=== PATIENT | female | born 1935 | race Caucasian/White ===

== ENCOUNTER 2025-03-06 11:19 | Day surgery (SDC) | payer MEDICARE, OTHER, SELFPAY ==
[2025-03-06] VITALS (10 sets, daily range): BP systolic 85–110; BP diastolic 51–67; BMI 28.0
[2025-03-06] MEDS: LOW STRENGTH ASPIRIN 324 MG PO (11:55)
[2025-03-06] MEDS: NSS 211 ML IV (11:58)
--- NOTE | 2025-03-06 13:03 | ITS.CL.CATH ---
Supervisor Wire Rope Fabrication - Catheterization
Cardiac Catheterization
Procedure Report:
LEFT HEART CATHETERIZATION
Date of Procedure: March 06, 2025
Procedures performed:
1: Coronary angiography
2: Left ventricular hemodynamic assessment
Primary Care Physician: Dr. Precious Wayne
Primary Refinery Operator Visbreaking: Dr. Alex Solomon
INDICATION: The patient is an 89-year-old woman who is referred for cardiac catheterization in preparation for aortic valve intervention. Echocardiography performed on December 28 showed severe aortic stenosis with a functionally bicuspid valve.
Mean gradient was 51 with a aortic valve area by the continuity equation of 0.7 and a dimensionless index of 0.23. She has no clear symptoms but does report some 'low energy 'and her gradients have increased. Her daughters are concerned she may be
minimizing symptoms.
ACCESS: The patient was prepped and draped in usual sterile fashion. A 5 Thai sheath was placed in the right radial artery using the Seldinger over the wire technique.
HEMODYNAMIC FINDINGS (mmHg):
LV(s/d,EDP): 151/10, 14
Ao(s/d,m): 98/56, 73
Mean aortic valve gradient on catheter pullback: 46 mmHg
ANGIOGRAPHIC FINDINGS:
Single-plane Left Ventriculography in TERRAZAS Projection: Not done
Coronary Angiography:
Dominance: Right
Left Main: Normal
Left Anterior Descending: The left anterior descending artery has a somewhat peculiar anatomy giving rise to a very large first septal rn chemical dependency that then traverses intramyocardial under the LAD giving rise to 2 more large septal perforators. The
LAD itself gives rise to a high first diagonal branch which is a large-caliber vessel that has an ostial 70% stenosis involving the lesion in the LAD that is diffusely 40 to 50%. The LAD itself is smaller in caliber than the first diagonal branch
and has a smooth 40% long mid stenosis followed by a smooth long 70% mid to distal stenosis. There is normal distal flow in all vessels.
Left Circumflex: The left circumflex artery is a relatively large caliber vessel that gives rise to 1 major branching obtuse marginal branch. This vessel has mild diffuse luminal irregularities with no focal obstructive disease and normal distal
flow in all vessels.
Right Coronary: The right coronary artery is a huge dominant vessel that gives rise to a large caliber posterior left ventricular branch system with 2 major branches and a medium to large caliber posterior descending artery. The mid RCA has a
smooth 30% stenosis. The distal vessels appear angiographically normal with normal flow.
Fluoroscopy Time (min): 3.3
Radiation Dose (mGy): 221
DAP (Gy.cm2): 13
Closure device: None. A TR band was applied for hemostasis at the right wrist.
Complications: None.
ASSESSMENT:
1: Single-vessel LAD/diagonal coronary disease. Given the location and nature of the disease, I feel this should be treated medically in this 89-year-old without symptoms and normal LV systolic function.
2: Severe aortic valvular stenosis.
CONCLUSIONS and RECOMMENDATIONS:
1: Proceed with TAVR evaluation.
2: Initiate statin therapy with atorvastatin 10 mg daily with clinical follow-up with Dr. Solomon as scheduled.
Rand Esposito M.D.
Copy to: Dr. Precious Wayne
--- NOTE | 2025-03-06 14:27 | CONSULT.STRU ---
Consultation
-
Date/Time Consultation Requested: 03/06/2025
Date/Time Consultation Performed: 03/06/2025
Requesting Provider: Dr. Pedro Esposito
Performing Provider: JULIA Chaney
Reason for Consultation: Aortic stenosis/ TAVR evaluation
Patient History
Physicians
Family Physician: Precious Wayne
Outpatient Senior Backup Administrator: Alex Solomon
Primary Senior Backup Administrator: Alex Solomon
History of Present Illness
Mrs. Patel is a very pleasant and well appearing 89yo female. She has severe, borderline critical -Asymptomatic. This has progressed over last three years and is nearly critical. She remains very functional and minimally symptomatic. Her
daughter thinks she may be minimizing symptoms, patient essentially denies any symptoms other than fatigue. Her echocardiogram on 12/28/2024 shows AV PG/M.5/50.7, PENNY 0.74, AoV velocity of 4.46 m/s. She underwent cardiac cath today which
demonstrated Single-vessel LAD/diagonal coronary disease. Given the location and nature of the disease, Dr. Esposito felt this should be treated medically in this 89-year-old without symptoms and normal LV systolic function.
Reviewed the pathophysiology of aortic stenosis with the patient and her daughters. Explained the treatment options of SAVR and TAVR. Explained the TAVR evaluation process including follow up BMP, CT TAVR scan, CT surgery consult and Heart Team
discussion. Provided with script for BMP next week, script and appointment for CT TAVR, Consult appointment with Dr. Thompson and a copy of the TAVR education booklet with contact information. Allowed for and answered questions.
Past Medical History
Past Medical History: CAD, Hypothyroidism, Psychiatric (anxiety), Valvular Disease (Severe , trace AI, Trace MR) and Other (Irritable bowel syndrome, frequent UTIs (on low dose cefalexin daily), osteoarthritis of left knee, DJD)
Past Surgical History
Past Surgical History: Tonsilectomy and Other (hernia repair, hand surgery, nasal surgery, cataract surgery)
Dental History
[facility]. Regular dental care
Family History
Mother: at Age (98)
Father: at Age (77) and Cause of (cancer)
Social History
Alcohol: Occasional
Drug: None
Tobacco: Non-Smoker
Personal:
Living: Alone (in cottage at assisted living facility)
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
Allergies
Allergy/AdvReac Type Severity Reaction Status Date / Time
Penicillins Allergy Unknown Unknown Verified 03/06/25 11:55
Home Medications
�Medication �Instructions �Recorded �Confirmed �Type
ascorbic acid (vitamin C) 500 mg 500 mg PO DAILY 03/06/25 03/06/25 History
tablet (Vitamin C)
atorvastatin 10 mg tablet 10 mg PO QPM #1 tab 03/06/25 Rx
cephalexin 250 mg tablet 250 mg PO DAILY 03/06/25 03/06/25 History
citalopram 20 mg tablet 20 mg PO DAILY 03/06/25 03/06/25 History
levothyroxine 88 mcg tablet 88 mcg PO DAILY 03/06/25 03/06/25 History
red yeast rice 600 mg tablet 600 mg PO BID 03/06/25 03/06/25 History
STS%
STS %: 4.51%
Review of Systems
-
History Source: Patient and Family
General: Reports Fatigue (mild)
HEENT: Reports No Symptoms; Denies Visual Changes or Dysphagia
Respiratory: Reports No Symptoms; Denies SOB, DIXON, Cough, Asthma or PND
Cardiac: Reports No Symptoms; Denies Chest Pain or Edema
Abdomen/GI: Reports Other (IBS); Denies Reflux or Ulcers
: Reports Other (frequent UTI- chronically on cephalexin)
Musculoskeletal: Reports Joint Pain (left knee osteoarthritis)
Skin: Reports No Symptoms
Neurological: Reports No Symptoms; Denies CVA, TIA, Headaches, Syncope or Dizzy
Vascular: Reports No Symptoms
Physical Exam
Vital Signs
Temp 98.3 F 03/06/25 11:35
Temp route: Oral 03/06/25 11:35
Pulse 60 03/06/25 13:30
Resp Rate 16 03/06/25 13:30
Blood pressure 99/67 03/06/25 11:41
Blood pressure extremity used: Right upper arm 03/06/25 14:00
Position: Sitting 03/06/25 14:00
MAP (cuff-Polo Monitor) 75 03/06/25 11:41
SaO2 92 03/06/25 13:45
Oxygen Mode of Delivery Room air 03/06/25 14:00
Can the patient verbally communicate their pain? Yes 03/06/25 14:00
Actual Weight 70.4 kg 03/06/25 11:35
Body Mass Index (BMI) 28.0 03/06/25 11:35
Labs
02/28/2025:
H/H: 16.1/50.0
WBC: 10.2
Platelets: [id number]
BUN/Creat: 22/0.72
GFR: 81
Diagnostic Studies
Cardiac Catheterization 03/06/2025:
HEMODYNAMIC FINDINGS (mmHg):
LV(s/d,EDP): 151/10, 14
Ao(s/d,m): 98/56, 73
Mean aortic valve gradient on catheter pullback: 46 mmHg
ANGIOGRAPHIC FINDINGS:
Single-plane Left Ventriculography in TERRAZAS Projection: Not done
Coronary Angiography:
Dominance: Right
Left Main: Normal
Left Anterior Descending: The left anterior descending artery has a somewhat peculiar anatomy giving rise to a very large first septal auto service instructor that then traverses intramyocardial under the LAD giving rise to 2 more large septal perforators. The
LAD itself gives rise to a high first diagonal branch which is a large-caliber vessel that has an ostial 70% stenosis involving the lesion in the LAD that is diffusely 40 to 50%. The LAD itself is smaller in caliber than the first diagonal branch
and has a smooth 40% long mid stenosis followed by a smooth long 70% mid to distal stenosis. There is normal distal flow in all vessels.
Left Circumflex: The left circumflex artery is a relatively large caliber vessel that gives rise to 1 major branching obtuse marginal branch. This vessel has mild diffuse luminal irregularities with no focal obstructive disease and normal distal
flow in all vessels.
Right Coronary: The right coronary artery is a huge dominant vessel that gives rise to a large caliber posterior left ventricular branch system with 2 major branches and a medium to large caliber posterior descending artery. The mid RCA has a
smooth 30% stenosis. The distal vessels appear angiographically normal with normal flow.
Fluoroscopy Time (min): 3.3
Radiation Dose (mGy): 221
DAP (Gy.cm2): 13
Closure device: None. A TR band was applied for hemostasis at the right wrist.
Complications: None.
ASSESSMENT:
1: Single-vessel LAD/diagonal coronary disease. Given the location and nature of the disease, I feel this should be treated medically in this 89-year-old without symptoms and normal LV systolic function.
2: Severe aortic valvular stenosis.
CONCLUSIONS and RECOMMENDATIONS:
1: Proceed with TAVR evaluation.
2: Initiate statin therapy with atorvastatin 10 mg daily with clinical follow-up with Dr. Solomon as scheduled.
Echocardiogram 12/28/2024:
SUMMARY
1. Left ventricular ejection fraction, by visual estimation, is 55 to 60%.
2. Severe concentric left ventricular hypertrophy.
3. Normal LV diastolic function.
4. The left atrium is normal in by volume index 22.5 mL/m2.
5. Normal right ventricular size and systolic function.
6. Normal right atrium by area 12.9 cm2.
7. Aortic valve is functionally bicuspid. Severe aortic valve stenosis. Trace aortic regurgitation.
8. AoV velocity of 4.46 m/s; Peak aortic valve gradient = 79.5 mmHg; Mean gradient = 50.7 mmHg; AoV Area by continuity equation = 0.74 cm2; AoV Dimensionless Index = 0.23.
9. Mild mitral annular calcification.
10. Right atrial pressure of (3 mmHg), the estimated right ventricular systolic pressure is normal at (20.0 mmHg).
11. Aortic root and ascending aorta appear normal, with no evidence of dilatation or obstruction.
12. Compared to prior study 07/2024, findings are similar.
13. Study done in Normal sinus rhythm.
14. Basal inferior segment is abnormal.

PHYSICIAN INTERPRETATION
Left Ventricle:
The left ventricular internal cavity size was normal. There is severe concentric left ventricular hypertrophy. Normal LV diastolic function was demonstrated. Left ventricular ejection fraction, by visual estimation, is 55 to 60%.
LV Wall Scoring:
The basal inferior segment is hypokinetic. All remaining scored segments are
normal.
Right Ventricle:
Normal right ventricular size, wall thickness, and systolic function. The tricuspid regurgitant velocity predicts an estimated right ventricular systolic pressure of 20.0 mmHg.
Left Atrium:
The left atrium is normal by volume index 22.5 mL/m2.
Right Atrium:
Right atrium is normal by area 12.9 cm2.
Inferior vena cava normal in size (<2.1 cm) + greater than 50% variably consistent with normal right atrial pressures (3 mmHg).
Interatrial Septum:
Interatrial and interventricular septa appear intact, with no obvious evidence of intracardiac shunting by spectral or color Doppler.
Aortic Valve:
The aortic valve is functionallly bicuspid. Doppler findings and restricted movement of the aortic valve cusps are consistent with severe aortic stenosis. The peak aortic valve gradient is 79.5 mmHg. The mean aortic valve gradient is 50.7 mmHg.
There is trace aortic regurgitation seen.
Mitral Valve:
There is mild mitral annular calcification. The calculated mitral valve area is 2.58 cm�, using a pressure half-time of 85 msec. Trace mitral valve regurgitation is seen.
Tricuspid Valve:
There is trace tricuspid valve regurgitation. The tricuspid regurgitant velocity is (2.06 m/s), and with an assumed right atrial pressure of (3 mmHg), the right ventricular systolic pressure is normal (20.0 mmHg).
Pulmonary Valve:
The pulmonary valve is normal in structure and function, with good leaflet excursion, and without any evidence of pulmonary stenosis or significant regurgitation.
Aorta:
The aortic root and ascending aorta appear normal in dimensions, with no evidence of dilatation or obstruction.
Pericardium:
There is no evidence of pericardial effusion.
Sinus Rhythm: Normal sinus rhythm.
Comparison To Previous Study:
Compared to prior study 07/2024, findings are similar.
Exam
General: Well Developed, Well Nourished, No Apparent Distress and Comfortable
HEENT: Normocephalic, Moist Mucous Membranes and PERRLA
Neck: Trachea Midline
Respiratory: Clear; Negative Wheezes, Crackles or Rhonchi
Cardiac: S1/S2, Regular Rhythm and Murmur (Grade III/ GHULAM)
GI: Soft, Non Tender and Normal Bowel Sounds
Rectal: Deferred by Provider
Skin: Warm and Dry
Neuro: AO x 3
Extremities: Pulses (normal); Negative Lower Level Edema
Psych: Calm
Assessment / Plan
-
Severe Aortic stenosis:
����������� Continue evaluation for aortic stenosis as outpatient
����������� BMP at [facility] [address] on 03/12
����������� CT TAVR scan 03/15/2025 at
����������� CT surgery consult with Dr. Thompson 03/26/2025
����������� Dental Clearance ([facility])
����������� Heart team discussion at [facility]
Procedure Type:�Isolated AVR
Perioperative Outcome Estimate %
Operative Mortality 4.51%
Morbidity & Mortality 9.45%
Stroke 1.67%
Renal Failure 0.917%
Reoperation 2.96%
Prolonged Ventilation 5.59%
Deep Sternal Wound Infection 0.048%
Long Hospital Stay (>14 days) 5.05%
Short Hospital Stay (<6 days)* 32.5%
Data Reviewed
-
EKG: Report Reviewed by me
Junior Sales Assistant: Discussed with Physician, Discussed with Patient and Discussed with Family
Echo: Report Reviewed by me, Discussed with Physician, Discussed with Patient and Discussed with Family
Labs: Labs Reviewed by me
Old Records: Reviewed (cardiology consult note)
Total Time Spent with Patient (in minutes): 30
== END 2025-03-06 16:25 | disposition home or self-care (01) ==
LOC: CATH 11:19
PROVIDERS: ATTENDING PHYSICIAN Internal Medicine Interventional Cardiology; FAMILY PHYSICIAN Family Medicine; OTHER PHYSICIAN Internal Medicine Cardiovascular Disease
DX: I25.10 Atherosclerotic heart disease of native coronary artery without angina pectoris (principal); I08.0 Rheumatic disorders of both mitral and aortic valves; E03.9 Hypothyroidism, unspecified; Z87.19 Personal history of other diseases of the digestive system
CPT/HCPCS: 93458; C1769; C1894; Q9967

== ENCOUNTER → 2025-03-15 08:43 | Outpatient (REF) | payer MEDICARE, OTHER, SELFPAY | LOC: RAD 08:43 | PROVIDERS: ATTENDING PHYSICIAN Nurse Practitioner Adult Health; FAMILY PHYSICIAN Family Medicine | DX: I35.0 Nonrheumatic aortic (valve) stenosis (principal) | CPT/HCPCS: 74174; 75572; Q9967 ==

== ENCOUNTER 2025-04-25 07:24 | Inpatient (IN) | payer MEDICARE, OTHER, SELFPAY ==
[2025-04-15 12:43] VITALS: BMI 28.7
[2025-04-15 13:18] LABS: % Basophils 0.3 % (0-2); % Eosinophils 1.5 % (0-6); % Immature Granulocytes 0.3 % (0-0.5); % Lymphocytes 12.7 % (20.5-51.1); % Monocytes 6.6 % (1.7-9.3); % Neutrophils 78.6 % (42.2-75.2); Absolute Eosinophils 0.1 10^3/uL (0-0.7); Absolute Monocytes 0.5 10^3/uL (0.1-0.6); Absolute Neutrophils 5.9 10^3/uL (1.4-6.5); Hematocrit 43.2 % (37.0-47.0); Hemoglobin 14.2 g/dL (12.0-16.0); Mean Corp Hgb Conc. 32.9 g/dL (33.0-37.0); Mean Corpuscular Hgb 29.5 pg (27.0-31.0); Mean Corpuscular Volume 89.8 fL (81.0-99.0); Nucleated Red Blood Cells % 0 %; Platelet Count 247 10^3/uL (130-400); Red Blood Cell Count 4.81 10^6/uL (4.20-5.40); Red Cell Dist. Width 13.8 % (11.5-14.5); White Blood Cell Count 7.5 10^3/uL (4.8-10.8)
[2025-04-15 14:02] LABS: Glycohemoglobin (HgbA1c) 5.6 % (4.0-5.6)
[2025-04-15 14:19] LABS: INR 1.08; PT 14.3 Sec (11.4-14.6)
[2025-04-15 14:20] LABS: APTT 43.4 Sec (23.4-35.0)
[2025-04-15 14:39] LABS: Urine Albumin Negative (Neg - Trace); Urine Bilirubin Negative (Negative); Urine Character Clear (Clear); Urine Color Yellow; Urine Glucose Negative (Negative); Urine Ketone Negative (Negative); Urine Leukocyte Negative (Negative); Urine Nitrite Negative (Negative); Urine Occult Blood Negative (Negative); Urine Specific Gravity 1.015 (<1.030); Urine Urobilinogen Negative (Neg - 1+); Urine pH 6.5 (5.0-9.0)
[2025-04-15 15:17] LABS: NT-proBNP 789 pg/ml
[2025-04-15 15:21] LABS: ALT (SGPT) 16 U/L (0-35); AST (SGOT) 21 U/L (14-36); Alkaline Phosphatase 77 U/L (38-126); Blood Urea Nitrogen 17 mg/dl (7-17); Calcium 9.7 mg/dl (8.4-10.2); Carbon Dioxide 27 mmol/L (22-30); Chloride 108 mmol/L (98-107); Direct Bilirubin 0.3 mg/dl (0.0-0.4); Estimated Creatinine Clearance 54 ml/min; Glucose 79 mg/dl (70-99); Potassium 4.4 mmol/L (3.5-5.1); Sodium 142 mmol/L (135-145); Total Bilirubin 0.6 mg/dl (0.2-1.3); Total Protein 6.5 g/dl (6.3-8.2); eGFR > 60.00
--- NOTE | 2025-04-15 16:22 | CM ---
spoke to pt and daughter, bassam, in PAT's. we discussed preop TAVR teaching including driving and lifting restrictions, she is prev indep, lives alone in a 1 story home with no steps to enter. she has the TAVR educ book, soap and instructions, cm
role explained and all questions answered. she is agreeable to a f/u visist from the ct transitional care nurse after dc
[2025-04-25] VITALS (26 sets, daily range): BP systolic 71–153; BP diastolic 52–92; BMI 28.3
[2025-04-25] MEDS: BACTROBAN NASAL 1 GRAM NASAL (08:21)
--- NOTE | 2025-04-25 09:11 | W.CVOR.SURPR ---
CVOR Surgeon Immed Pre Op
-
I have examined this patient prior to performance of the scheduled procedure.
The patient's condition is unchanged from the time of the dictated/written History and
Physical and the patient is able to undergo the scheduled procedure.
[2025-04-25 10:55] LABS: ACT-LR - POC 390 Seconds (116-155)
--- NOTE | 2025-04-25 11:24 | W.IMMPOSTOP ---
Addendum entered and electronically signed by Nitish Thompson MD 04/25/25 11:58:
[id number]
Original Note:
Surgical Immed Post Op Note
-
STRUCTURAL HEART PROCEDURE NOTE: TAVR
Preoperative Dx:
Severe aortic stenosis (P/M: 79.5/50.7), PENNY 0.74, Dipping Machine Operator 4.46)
Single vessel CAD (LAD/D)
Trace AI, trace MR
OA of L knee
DDD
Hypothyroidism
DDD
Frequent UTIs
Postoperative Dx:
Same
Procedures:
1) R CFV access w/ U/S and fluoroscopic guidance, micropuncture technique, long 6Fr sheath placement
2) R CAMP BOSS access w/ tactile, U/S, and fluoroscopic guidance, micropuncture technique, limited angiography, long 6Fr sheath placement
3) L CAMP BOSS access w/ tactile, U/S, and fluoroscopic guidance, micropuncture technique, limited angiography, 8Fr dilator placement
4) Perclose placement x 2 into L CAMP BOSS, 8Fr sheath placement
5) Placement of temporary RV pacing wire w/ threshold testing
6) Placement of pigtail catheter in RCC w/ limited aortography & confirmation of co-planar valve deployment angles
7) Placement of Briones E-sheath via L CAMP BOSS access
8) Wire purchase across stenotic AV; withdrawal and repeat wire purchase across stenotic AV (AL-1, soft-tip straight, table-J, AL-1, soft-tip straight, LVEDP assessment (19mmHg), extra-stiff)
9) L TF TAVR w/ placement of 26mm YUE 3 valve
10) Completion aortography
11) Completion TTE (mean gradient 4mmHg, no AI/PVL)
12) Removal of valve delivery system/Briones E-sheath w/ L CAMP BOSS mgmt w/ perclose sutures x 2; manual pressure
13) Completion L ileofemoral angiography x 2
14) Removal of temporary pacing wire
15) Removal of R CAMP BOSS 6Fr sheath w/ mgmt w/ 6Fr angioseal; manual pressure (protamine)
16) Removal of R CFV 6Fr sheath w/ mgmt w/ manual pressure
Canteen Manager:
Dr. Soraya Burrell
Cardiac Surgeon:
Dr. Nitish Thompson
Anesthesia:
MAC & local to B/L groins
Complications:
None
Cath Data:
Start: 1021hrs, Deploy: 1101hrs, End: 1122hrs
FT: 13.2min, mGy: 321.77, DAP: 36.2508, Contrast: 110
Post-TTE: mean gradient 4mmHg, no AI/PVL
Implants:
Briones Lifescience, YUE 3, 26mm, SN [id number]
Perclose x 2 to L CAMP BOSS
6Fr angioseal x 1 to R CAMP BOSS
Condition:
Stable/guarded to recovery
--- NOTE | 2025-04-25 11:29 | ITS.CL.TAVR ---
Industrial Sweeper Cleaner - TAVR Report
TAVR PRocedure
Procedure Report:
TRANSCATHETER AORTIC VALVE REPLACEMENT
Date of Procedure: April 25, 2025
Referring: Alex Solomon and Rand Esposito
Operators: Drs. Soraya Burrell and Nitihs Thompson
PROCEDURE PERFORMED:
1. Successful placement of 26 mm Briones Juma S3 aortic valve via left common femoral approach.
ACCESS:
1. Right common femoral artery, 6 Congolese sheath, under ultrasound guidance using a micropuncture kit.
2. Right common femoral vein, 6 Congolese sheath, under ultrasound guidance using a micropuncture kit.
3. Left common femoral artery, 8 Congolese sheath, under ultrasound guidance using a micropuncture kit.
Ultrasound was utilized for vascular access. The right and left femoral artery and vein were visualized under ultrasound, and the vessels was patent and arteries were pulsatile. An image was stored permanently in the patient's medical record.
Under direct ultrasound guidance, a 6 Congolese sheaths was inserted into the right common femoral artery and vein, and an 8 Congolese sheath in the left common femoral artery, respectively, using a micropuncture kit through a modified Seldinger technique.
PREPROCEDURE NYHA CLASS: II
DESCRIPTION OF PROCEDURE: The patient was referred for assessment of severe symptomatic aortic stenosis and following a comprehensive evaluation it was felt that transcatheter aortic valve replacement (TAVR) would be the most appropriate treatment.
Informed consent was obtained prior to the procedure. A 'time-out' was called and the procedural plan was verbally confirmed by anesthesia, surgery, perfusion, and mechanical shop laborer staff.
Arterial and venous access site were obtained in the right common femoral artery and vein using ultrasound guidance and micropuncture technique. 6 Fr. sheaths were inserted.
A 5 Fr. transvenous pacing wire was advanced to the right ventricle where excellent pacing thresholds were obtained.
A 5 Fr. pigtail catheter was then advanced to the proximal ascending aorta / right aortic cusp where angiography was performed in multiple angles to define the co-planar angle that was most appropriate valve deployment (LUXEMBOURGER 7/ CAU 12).
Ultrasound guidance was then used to obtain arterial access in the left common femoral artery and a 4 Fr. micropuncture sheath was inserted. Angiography was performed and the arteriotomy site appeared appropriate for preclosure with two Perclose
devices. An 8 Fr sheath was then inserted back into the common femoral artery over a J-tipped guidewire. An AL1 catheter was positioned in the proximal descending aorta. An Extra Stiff 0.035' J-tip wire was inserted to provide extra-support to
facilitate the Briones eSheath delivery. The 16 Fr. Briones eSheath was successfully advanced in the descending thoracic aorta.
An AL1 catheter was advanced through the Briones eSheath over a 0.035' J-tip guide wire. The AL1 catheter was positioned just above the aortic valve. A 0.035' Straight tip wire probed the aortic valve and crossed the stenotic leaflets. The AL1
was then advanced to the mid left ventricle. Estimated LV end-diastolic pressure invasively was 16. An Amplatz Extra-stiff wire with a generous curved tip was then positioned in the left ventricular apex. A 26 mm Briones Juma S3 valve was brought
to the table and the orientation of the valve on the balloon delivery system was confirmed by all operators. The Juma S3 valve was advanced through the eSheath and into the proximal descending thoracic aorta. The Juma S3 valve was centered on
the delivery balloon and the entire system was retroflexed as it crossed the aortic arch. The Juma S3 delivery system was then advanced across the stenotic valve and the 26 mm Juma S3 valve was deployed during rapid pacing. The valve
deployment was uneventful. Transthoracic echocardiographic images post valve deployment revealed minimal aortic insufficiency with excellent position of the aortic prosthesis. Transaortic mean gradient by echocardiogram post TAVR was 4 mmHg. No
aortic regurgitation.
The Briones balloon and delivery system were then removed. The Briones sheath was removed and the Perclose knots were advanced to the arteriotomy site resulting in excellent hemostasis.
Fluoro Time: 8.8 min, Dose: 720.7 mGy, DAP : 50.6 Gy.cm2
CONCLUSIONS:
1. Severe symptomatic aortic stenosis. Successful deployment of a 26 mm Juma S3 valve with minimal aortic insufficiency post procedure
2. Successful arteriotomy closure with 2 Perclose devices.
Soraya Burrell MD, FACC, [facility]
Copy to: Alex Solomon and Rand Esposito
[2025-04-25] MEDS: LEVOPHED 250 IV (12:15)
[2025-04-25] MEDS: ANCEF IV (14:20)
[2025-04-25] MEDS: ANCEF 10 IV (14:20)
--- NOTE | 2025-04-25 14:29 | CM ---
CM following for DC planning needs.
Patient in OR today for planned TAVR.
I have reviewed initial assessment. Patient resides in a private, 1 story home alone. She is functionally independent with ADLs, mobilities without the use of any assisted device.
Anticipated DC plan is for home w/ CT Transitional Care RN.
CM to follow.
[2025-04-25 14:34] LABS: ACT-LR - POC > 397 Seconds (116-155)
[2025-04-25] MEDS: ANCEF 5 IV (17:27)
[2025-04-25] MEDS: LIPITOR 10 MG PO (17:27)
--- NOTE | 2025-04-25 18:45 | PTCARENOTE ---
Pt received post TAVR, drowsy but oriented X 3. Neuro assessment unremarkable. Bilateral femoral sites with dry and intact dressings, no sign of bleeding or hematoma, doppler pedal pulses. Pt with levo infusion at 2mcgs, turned off by 17:00. When pt
was sat up in bed she reported 'a strange feeling in her chest, nothing she had ever had before'. She denied any pain, tightness, burning, discomfort but just stated it was 'odd'. She reported that it went away slowly by the time she ate. Esther
Juan and Eva Roberson, investment banker notified, will notify them if it returns. Telemetry shows sinus rhythm with first degree AV block, SBP's 120-130. Pt OOB to bathroom, voiding without difficulty.
--- NOTE | 2025-04-26 00:05 | PTCARENOTE ---
Rec'd pt. at change of shift sitting OOB in chair, complaining that she felt 'funny in her chest' best described as unable to take a deep breath. Denied any chest pain, just a sensation she had difficulty describing. Pulse ox on RA 91-95%, some
crackles present right lung base. Pt. assisted back to bed and placed on 2L NC with pulse ox increasing to 97-98% & EKG completed. CARL-APOLINAR Esquivel aware and came to bedside to assess, advised to keep O2 on overnight with continuous pulse ox. Pt.
currently states she feels much better with O2 on, pulse ox 95%. NSR with first degree AVB on the monitor, other vitals stable. Bilateral groin site dressings CDI with no bleeding or hematoma assessed, Doppler pedal pulses present. Pt. resting
quietly in bed.
--- NOTE | 2025-04-26 02:02 | W.PN.CT ---
Today's Communication / Plan
-
-pod #1
-c/o intermittent episodes of mild SOB since TAVR, denied DIXON with walking to the bathroom, no distress- pOx was 95% on RA, felt better on 2L O2 with pOx 97%. No CP, ECG was stable, no change. Vitals and groins were stable.
-nsr 70s overnight. No parker or pauses
-has known 1st degree AVB- appears worse (MA interval >300 ms)
-long Qt
-K 5.4 this am - will recheck
-follow CXR
-Echo today
-current meds (ASA, Lipitor, Keflex, Celexa, Synthroid).
-will need heart monitor
-encourage IS, ambulate
Assessment / Plan
-
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
- Post-TTE: mean gradient 4mmHg, no AI/PVL
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
- Single vessel CAD (LAD/D)
- Trace AI, trace MR
- OA of L knee
- DDD
- Hypothyroidism
- DDD
- Frequent UTIs
Discussed patient care with: Nursing and Care Team
Subjective
-
Date of Service: April 26, 2025
Objective Data
-
PT 14.3 Sec (11.4-14.6) 04/15/25 12:36
INR 1.08 04/15/25 12:36
APTT 43.4 Sec (23.4-35.0) H 04/15/25 12:36
Vital Signs
Vital Signs
Temp Pulse Resp BP Pulse Ox
98.2 F 66 16 132/75 96
04/25/25 22:33 04/25/25 23:00 04/25/25 22:33 04/25/25 22:33 04/25/25 23:00
CT Intake/Output/Weight
04/25/25 04/25/25 04/26/25
06:59 18:59 06:59
Intake Total 1110 / 1110
Balance 1110 / 1110
SaO2: 96
[2025-04-26 03:41] VITALS: BP 136/84
[2025-04-26 04:14] LABS: Hemoglobin 14.1 g/dL (12.0-16.0); Mean Corpuscular Volume 90.5 fL (81.0-99.0); Mean Platelet Volume 10.7 fL (7.4-10.4); Platelet Count 174 10^3/uL (130-400); Red Blood Cell Count 4.86 10^6/uL (4.20-5.40); Red Cell Dist. Width 14.3 % (11.5-14.5); White Blood Cell Count 12.8 10^3/uL (4.8-10.8)
[2025-04-26 04:23] VITALS: BMI 28.4
[2025-04-26 04:48] LABS: Blood Urea Nitrogen 16 mg/dl (7-17); Calcium 9.5 mg/dl (8.4-10.2); Carbon Dioxide 25 mmol/L (22-30); Chloride 110 mmol/L (98-107); Estimated Creatinine Clearance 54 ml/min; Glucose 118 mg/dl (70-99); Potassium 5.4 mmol/L (3.5-5.1); Sodium 140 mmol/L (135-145); eGFR > 60.00
[2025-04-26] MEDS: SYNTHROID 88 MCG PO (05:53)
[2025-04-26 08:17] VITALS: BP 135/70
[2025-04-26] MEDS: ASPIR LOW (ENTERIC COATED) 81 MG PO (08:54)
[2025-04-26] MEDS: CELEXA 20 MG PO (08:55)
[2025-04-26] MEDS: VITAMIN C 500 MG PO (08:55)
[2025-04-26] MEDS: KEFLEX 250 MG PO (08:55)
--- NOTE | 2025-04-26 08:59 | W.PN.CARDCBS ---
Today's Communication / Plan
-
follow on tele
echo pending
repeat K
hold citalopram for 2 weeks
ambulate
OP cardiac follow up arranged
Impression / Plan
-
Primary Security Monitor: Dr. Solomon of [facility]
Assessment:
- Severe symptomatic s/p L TF TAVR 26mm YUE 3 valve 04/25/25
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
- Single vessel CAD of LAD/diagonal by cath 03/06/25, treated medically
- OA of L knee
- DDD
- Hypothyroidism
- Frequent UTIs
ECHO 12/28/24: EF 55-60%, severe cLVH, functionally bicuspid , trace AR, peak/mean gradients 79.5/50.7mmHg, PENNY 0.74cm2, mild MAC
ECHO 04/26/25: pending
Plan:
-Patient status post left transfemoral TAVR 04/25/2025
-Feeling well
-B/L groin sites stable
-noted to have low grade temp and white count of 12.8, follow, may be reactive post procedure
-Weaning oxygen
-Hemoglobin stable at 14.1. Continue aspirin
-Echo pending
-repeat K as was 5.4 by blood work this morning
-Was noted to to have brief episode of tachycardia this AM on tele, appears to be sinus rhythm with long 1st degree (P buried in T)
-QTc was noted to be prolonged by 3AM EKG, improved by repeat, suspect was inaccurate related to known long 1st degree av block but does remain somewhat prolonged. reviewed prior EKGs. will hold citalopram for 2 weeks then resume
-will discuss need for monitor upon DC
-ambulate/OOB
-OP cardiac follow up arranged
-for possible DC to home later today
-d/w nursing
Progress Note - Security Monitor
Subjective
Date of Service: April 26, 2025
feeling well. no complaints
Objective
Labs:
04/26/25 04:04
Labs
Hgb 14.1 g/dL (12.0-16.0) 04/26/25 04:04
Hct 44.0 % (37.0-47.0) 04/26/25 04:04
Plt Count 174 10^3/uL (130-400) 04/26/25 04:04
PT 14.3 Sec (11.4-14.6) 04/15/25 12:36
INR 1.08 04/15/25 12:36
APTT 43.4 Sec (23.4-35.0) H 04/15/25 12:36
Sodium 140 mmol/L (135-145) 04/26/25 04:04
Potassium 5.4 mmol/L (3.5-5.1) H 04/26/25 04:04
BUN 16 mg/dl (7-17) 04/26/25 04:04
Creatinine 0.7 mg/dL (0.6-1.0) 04/26/25 04:04
Glucose 118 mg/dl (70-99) H 04/26/25 04:04
Vital Signs and I&O:
Vital Signs
Temp Pulse Resp BP Pulse Ox
99.4 F 95 18 136/84 94
04/26/25 08:17 04/26/25 08:17 04/26/25 08:17 04/26/25 03:41 04/26/25 08:17
Vital Signs
Temp Pulse Resp BP Pulse Ox
99.4 F 95 18 136/84 94
04/26/25 08:17 04/26/25 08:17 04/26/25 08:17 04/26/25 03:41 04/26/25 08:17
Intake & Output
04/24/25 04/25/25 04/26/25 04/27/25
07:59 07:59 07:59 07:59
Intake Total 1590 / 1590
Balance 1589
Physical Exam
Physical Exam
GEN: No distress, awake, alert, oriented x3
HEENT: supple, anicteric, mmm, eomi
LUNGS: CTA B/L, no wheezes/rales
CV: Reg, S1/S2, 1/6 syst LSB
ABD: soft, BS+, NT/ND
EXT: No cyanosis, clubbing, edema
NEURO: Gross non-focal
SKIN: Warm, pink, dry. No rash. B/L groin sites soft, c/d/i
[2025-04-26 10:36] LABS: Potassium 4.1 mmol/L (3.5-5.1)
--- NOTE | 2025-04-26 11:46 | CM ---
CM following for DC planning needs.
Met w/ patient and dtr. at bedside. Pt. reports that she is feeling well. DC plan reviewed and plan is for home w/ [facility] RN.
Reviewed post op restrictions, follow up appointment and Cardiac Rehab.
Plan-home w/ CT RN
[2025-04-26 11:49] VITALS: BP 131/59
[2025-04-26 12:06] VITALS: BP 118/74
[2025-04-26 12:16] VITALS: BP 137/66
[2025-04-26 12:27] VITALS: BP 118/66; BP 137/60; PULSE 94; O2SAT 98; O2SAT 99
--- NOTE | 2025-04-26 14:05 | PTCARENOTE ---
d/c instructions read to pt and pt verbalized understanding. daughter at bedside listening also. iv and tele removed. starlink applied. pt left w/ belongings from room.
== END 2025-04-26 14:19 | disposition home or self-care (01) | DRG 267 ==
LOC: IVU 07:24
PROVIDERS: Nurse Practitioner; ADMITTING PHYSICIAN Thoracic Surgery (Cardiothoracic Vascular Surgery); CONSULT PHYSICIAN Internal Medicine Interventional Cardiology; FAMILY PHYSICIAN Family Medicine
PROC: 02RF38Z Replacement of Aortic Valve with Zooplastic Tissue, Percutaneous Approach (ICD-10-PCS; 2025-04-25)
DX: I35.0 Nonrheumatic aortic (valve) stenosis (principal); Z00.6 Encounter for examination for normal comparison and control in clinical research program; I44.0 Atrioventricular block, first degree; I25.10 Atherosclerotic heart disease of native coronary artery without angina pectoris; M17.12 Unilateral primary osteoarthritis, left knee; E03.9 Hypothyroidism, unspecified; Z87.440 Personal history of urinary (tract) infections
CPT/HCPCS: 93308; 33361; 36415; 71045; 71046; 80048; 80053; 81003; 82248; 83036; 83880; 84132; 85025; 85027; 85347; 85610; 85730; 86850; 86900; 86901; 87070; 93005; 93321; 93325; C1760; C1769; C1894; Q9967